=== PATIENT | female | born 1995 | race African-American/Black ===

== ENCOUNTER 2018-10-01 22:04 | Outpatient (CLI) | payer MEDICAID ==
[~2018-10-01 22:04] MED LIST: FERR325T18 PO; IBUP-1222 PO; prenatal; prenatal PO
== END 2018-10-01 22:56 | disposition home or self-care (01) ==
LOC: LDOP 22:04
PROVIDERS: ATTEND Obstetrics & Gynecology
DX: O26.893 Other specified pregnancy related conditions, third trimester (principal); Z3A.39 39 weeks gestation of pregnancy
CPT/HCPCS: 59025; 99211; G0463

== ENCOUNTER 2018-10-24 00:03 | Emergency (ER) | payer MEDICAID ==
[~2018-10-24] VITALS: Ht 157.5 cm; Wt 92.1 kg
[2018-10-24 00:08] VITALS: BP 137/89
--- NOTE | 2018-10-24 00:20 | NUR ---
PT TRANSFERRED FROM [facility] FOR RUQ PAIN. PT HAS IMPACTED GALL STONE. AT BEDSIDE
--- NOTE | 2018-10-24 00:55 | NUR ---
PT TO BE DISCHARGED. PIV REMOVED. VSS.
--- NOTE | 2018-10-24 01:01 | NUR ---
Patient given discharge instructions and they have confirmed that they understand the instructions. Patient ambulatory with steady gait.
== END 2018-10-24 01:04 | disposition home or self-care (01) ==
LOC: ED 00:27
DX: K80.70 Calculus of gallbladder and bile duct without cholecystitis without obstruction (principal)
CPT/HCPCS: 99283